=== PATIENT | female | born 1955 | race Caucasian/White ===

== ENCOUNTER → 2016-12-19 | Outpatient (CLI) | payer BC | END | disposition home or self-care (01) | LOC: C.PAPS 11:40 | PROVIDERS: ATTEND Obstetrics & Gynecology | DX: Z01.419 Encounter for gynecological examination (general) (routine) without abnormal findings (principal) ==

== ENCOUNTER → 2017-01-24 | Outpatient (CLI) | payer BC ==
--- NOTE | 2017-01-24 12:37 | MAMMOGRAPHY REPORT ---
BILATERAL DIGITAL SCREENING MAMMOGRAM TOMOSYNTHESIS WITH CAD: 01/24/2017 CLINICAL HISTORY: Routine screening examination. TECHNIQUE: Bilateral breast tomosynthesis in addition to standard 2D mammography was performed. Curr ent study was also evaluated with a Computer Aided Detection (CAD) system. COMPARISON: Comparison is made to exams dated: 11/02/2014 mammogram, 02/23/2010 mammogram - [facility], 01/01/2007, 01/02/2008, and 11/08/2011 mammogram - [facility]. BREAST COMPOSITION: There are scattered areas of fibroglandular density in both breasts. FINDINGS: There is a possible 4 mm mass in the lateral, middle one third of the left breast, for wh ich additional spot compression tomosynthesis HD views and possibly ultrasound are recommended. No other suspicious mass, architectural distortion or cluster of microcalcifications is seen bilater ally. IMPRESSION: ACR BI-RADS CATEGORY 0: INCOMPLETE EVALUATION: NEED ADDITIONAL IMAGING EVALUATION The possible 4 mm mass in the left lateral breast needs additional evaluation. The patient will be called to schedule an appointment. Approximately 10% of breast cancers are not detected with mammography. A negative mammographic repor t should not delay biopsy if a clinically suggestive mass is present. Shagufta De Leon M.D. ay/:01/24/2017 08:10:49 Team Assembly Line Machine Operator: Kathie OCHOA(Tanya)(M), [facility] letter sent: Addl Imaging 0 BI-RADS Code: ACR BI-RADS Category 0: Incomplete Evaluation: Need Additional Imaging Evaluation
== END | disposition home or self-care (01) ==
LOC: C.MAMM 07:34
PROVIDERS: ATTEND Obstetrics & Gynecology
DX: Z12.31 Encounter for screening mammogram for malignant neoplasm of breast (principal); R92.8 Other abnormal and inconclusive findings on diagnostic imaging of breast

== ENCOUNTER → 2017-02-01 | Outpatient (CLI) | payer BC ==
--- NOTE | 2017-02-01 12:40 | MAMMOGRAPHY REPORT ---
UNILATERAL LEFT DIGITAL DIAGNOSTIC MAMMOGRAM TOMOSYNTHESIS AND TARGETED LEFT ULTRASOUND: 02/01/2017 CLINICAL HISTORY: Callback from screening mammogram for left breast asymmetry. TECHNIQUE: Breast tomosynthesis in addition to standard 2D mammography was performed. Spot joel akshat left CC 2-D and tomosynthesis images and spot compression left MLO tomosynthesis images includi ng C views were obtained. COMPARISON: Comparison is made to exams dated: 01/24/2017 mammogram, 11/02/2014 mammogram, 11/08/2011 mammogram, and 02/23/2010 mammogram - [facility]. BREAST COMPOSITION: There are scattered areas of fibroglandular density in the left breast. FINDINGS: The previously described 4 mm nodular asymmetry seen within the left lateral breast persists on the spot compression views. In retrospect, the asymmetry appears similar on the spot compression view t o the prior 11/02/2014 exam, although is not clearly present on exams prior to 2013. No correlate i s seen on the MLO view. Targeted ultrasound was performed of the left lateral breast in the region of the mammographic asymm etry. No suspicious masses or other suspicious sonographic abnormalities were evident. In the left breast at 1:00, 3 cm from the nipple, there is an oval anechoic circumscribed 4 x 4 mm mass, consis tent with a benign simple cyst. This may correspond with the mammographic asymmetry. IMPRESSION: ACR-BI-RADS CATEGORY 3: PROBABLY BENIGN, TARGETED ULTRASOUND ACR-BI-RADS CATEGORY 3: MT OBABLY BENIGN Left lateral breast asymmetry persists on the additional views although appears similar to the 2014 exam on the current exam. A benign 4 mm cyst is seen in the left breast at 1:00 on ultrasound, whic h may correspond with the mammographic asymmetry. Findings are probably benign, and recommend follo w-up diagnostic tomosynthesis mammogram and possible ultrasound of the left breast in 6 months to co nfirm stability. The patient has been verbally notified of the results. Approximately 10% of breast cancers are not detected with mammography. A negative mammographic repor t should not delay biopsy if a clinically suggestive mass is present. Marta Kaur M.D. ah/:02/01/2017 10:04:41 Systems Specialist: Kathie Reyes, [facility] letter sent: Follow Up Recommended 3 BI-RADS Code: ACR-BI-RADS Category 3: Probably Benign Ultrasound BI-RADS: ACR-BI-RADS Category 3: P robably Benign
== END | disposition home or self-care (01) ==
LOC: C.MAMM 09:26
PROVIDERS: ATTEND Obstetrics & Gynecology
DX: N63 Unspecified lump in breast (principal); N64.89 Other specified disorders of breast; N60.02 Solitary cyst of left breast

== ENCOUNTER → 2017-08-06 | Outpatient (CLI) | payer BC ==
--- NOTE | 2017-08-06 13:09 | MAMMOGRAPHY REPORT ---
UNILATERAL LEFT DIGITAL DIAGNOSTIC MAMMOGRAM TOMOSYNTHESIS WITH CAD AND TARGETED LEFT ULTRASOUND: 07/20 CLINICAL HISTORY: 61-year-old woman presents for follow-up of a 4 mm nodular asymmetry in the lateral left breast. TECHNIQUE: Left breast tomosynthesis in addition to standard 2D mammography was performed. Current st udy was also evaluated with a Computer Aided Detection (CAD) system. COMPARISON: Comparison is made to exams dated: 02/01/2017 ultrasound, 02/01/2017 mammogram, 01/24/2017 m ammogram, 11/02/2014 mammogram, 11/08/2011 mammogram, and 02/23/2010 mammogram - [facility]. BREAST COMPOSITION: There are scattered areas of fibroglandular density in the left breast. FINDINGS: The nodular asymmetry previously identified in the lateral, middle to anterior left breast, best seen on the CC view is less conspicuous on the 2-D view and there is less prominent nodularity on the corresponding tomosynthesis images. No new mass, architectural distortion or cluster of suspic ious microcalcifications is seen in the left breast. Repeat targeted ultrasound was performed in the left breast with particular attention to the upper ou ter quadrant. A cyst is no longer identified in the 1:00 axis, 3 cm from the nipple as seen on the p rior ultrasound. However, incidentally identified is a benign anechoic simple cyst in the 12:00 andreia areolar left breast measuring 3.5 mm. No other suspicious solid or cystic mass is seen. IMPRESSION: ACR BI-RADS CATEGORY 2: BENIGN, TARGETED ULTRASOUND ACR BI-RADS CATEGORY 2: BENIGN Decreased prominence of a 4 mm nodular asymmetry in the lateral left breast, which currently appears very similar to the 2010 and 2009 mammograms, and no suspicious sonographic correlate was identified. The asymmetry is considered benign, and no further close follow-up is needed at this time. Recomme nd return to annual screening mammography schedule, which is due in 6 months. These results and anant mmendations were discussed with the patient at the time of the exam. Approximately 10% of breast cancers are not detected with mammography. A negative mammographic report should not delay biopsy if a clinically suggestive mass is present. Shagufta De Leon M.D. ay/:08/06/2017 08:42:05 Direct Chill Caster: Ángela OCHOA(R)(M), [facility] letter sent: Normal 1/2 BI-RADS Code: ACR BI-RADS Category 2: Benign Ultrasound BI-RADS: ACR BI-RADS Category 2: Benign
== END | disposition home or self-care (01) ==
LOC: C.MAMM 08:11
PROVIDERS: ATTEND Obstetrics & Gynecology
DX: R92.2 Inconclusive mammogram (principal)

== ENCOUNTER → 2017-12-29 | Outpatient (CLI) | payer OTHER ==
--- NOTE | 2017-12-29 09:47 | DIAGNOSTIC IMAGING REPORT ---
CHEST 2 VIEWS ROUTINE CLINICAL HISTORY: 62 years-old Female presenting with DYSPNEA, left-sided rib pain. TECHNIQUE: PA and lateral views of the chest were obtained. COMPARISON: None. FINDINGS: Atherosclerosis of the aortic arch. Cardiac silhouette normal in size. Lungs and pleural spaces clear. Osseous structures normal. Upper abdomen normal. IMPRESSION: 1. No acute cardiopulmonary disease. Electronically signed by: Vadim Stovall M.D. 12/29/2017 9:45 AM Dictated Date/Time: 12/29/2017 9:45 AM
== END | disposition home or self-care (01) ==
LOC: C.RAD1850 09:25
PROVIDERS: ATTEND Neuromusculoskeletal Medicine & OMM
DX: R06.00 Dyspnea, unspecified (principal); R07.81 Pleurodynia

== ENCOUNTER → 2018-01-22 | Outpatient (CLI) | payer OTHER | END | disposition home or self-care (01) | LOC: C.PAPS 18:15 | PROVIDERS: ATTEND Obstetrics & Gynecology | DX: Z12.4 Encounter for screening for malignant neoplasm of cervix (principal) ==

== ENCOUNTER → 2018-01-29 | Outpatient (CLI) | payer OTHER ==
--- NOTE | 2018-01-29 15:12 | MAMMOGRAPHY REPORT ---
BILATERAL DIGITAL SCREENING MAMMOGRAM TOMOSYNTHESIS WITH CAD: 01/29/2018 CLINICAL HISTORY: Routine screening. Patient has no complaints. TECHNIQUE: Breast tomosynthesis in addition to standard 2D mammography was performed. Current study was also evaluated with a Computer Aided Detection (CAD) system. COMPARISON: Comparison is made to exams dated: 08/06/2017 mammogram, 02/01/2017 mammogram, 01/24/2017 ma mmogram, 11/02/2014 mammogram, 11/08/2011 mammogram, and 02/23/2010 mammogram - [facility]. BREAST COMPOSITION: There are scattered areas of fibroglandular density in both breasts. FINDINGS: A left lateral nodular asymmetry is less prominent comparing to recent prior exams. No sirena picious mass, architectural distortion or cluster of microcalcifications is seen. IMPRESSION: ACR BI-RADS CATEGORY 1: NEGATIVE There is no mammographic evidence of malignancy. A 1 year screening mammogram is recommended. The pa tient will receive written notification of the results. Approximately 10% of breast cancers are not detected with mammography. A negative mammographic report should not delay biopsy if a clinically suggestive mass is present. Shagufta De Leon M.D. ay/:01/29/2018 08:04:07 Film Laboratory Technician: Terri OCHOA(Tanya)(Ajay)(BD), [facility] letter sent: Normal 1/2 BI-RADS Code: ACR BI-RADS Category 1: Negative
== END | disposition home or self-care (01) ==
LOC: C.MAMM 07:35
PROVIDERS: ATTEND Obstetrics & Gynecology
DX: Z12.31 Encounter for screening mammogram for malignant neoplasm of breast (principal)

== ENCOUNTER → 2018-03-05 | Outpatient (CLI) | payer OTHER ==
[~2018-03-05] MED LIST: GADAVIST IV PRN
--- NOTE | 2018-03-05 16:38 | DIAGNOSTIC IMAGING REPORT ---
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 TECHNIQUE: MRI of the brain was performed from the vertex to the skull base utilizing various T1 and T2 weighted sequences. Following the IV administration of 5.4 mL of Gadavist contrast, additional enhanced images were obtained. FINDINGS: Sagittal T1, axial diffusion, proton density and T2 weighted axial, coronal FLAIR, and pre and post axial T1-weighted images were acquired. These were supplemented with post gadolinium coronal T1 weighted images. No intra or extra-axial mass lesions are visualized. Axial diffusion-weighted images reveal no evidence of acute or subacute infarction. There is no evidence of ventricular dilatation. Proton density T2-weighted and FLAIR images reveal no significant intraparenchymal signal abnormalities. There are no abnormal flow voids. There is no evidence of pathologic enhancement. The 7th and 8th nerve complexes appear normal bilaterally. No cerebellopontine angle masses are visualized. IMPRESSION: Normal MRI of the brain for age Electronically signed by: Darnell Zaragoza M.D. 03/05/2018 4:36 PM Dictated Date/Time: 03/05/2018 4:34 PM
== END | disposition home or self-care (01) ==
LOC: C.MRI 14:55
PROVIDERS: ATTEND Physician Assistant
DX: H90.41 Sensorineural hearing loss, unilateral, right ear, with unrestricted hearing on the contralateral side (principal)